=== PATIENT | male | born 1945 | race Caucasian/White ===

== ENCOUNTER 2020-07-02 09:09 | Day surgery (SDC) | payer OTHER, BC ==
[2020-06-26 11:37] VITALS: BMI 26.9
[2020-07-02] MEDS: PHENYLEPHRINE 2.5% OPHTH SOLN 15 ML BOTTLE ONE ×3 (10:45→10:55)
[2020-07-02] MEDS: CYCLOPENTOLATE 2% OPHTH SOLN 2 ML BOTTLE ONE ×3 (10:45→10:55)
[2020-07-02] MEDS: CIPROFLOXACIN 0.3% EYE DROPS 5 ML BOTTLE ONE ×3 (10:45→10:55)
[2020-07-02] MEDS: TROPICAMIDE 1% OPHTH SOLN 15 ML BOTTLE ONE ×3 (10:45→10:55)
[2020-07-02] MEDS ORDERED: MIDAZOLAM HCL 2 MG/2 ML SINGLE DOSE VIAL ONE (10:47)
[2020-07-02] MEDS ORDERED: LIDOCAINE 1% P/F 10 MG/ML VIAL ONE (11:05)
[2020-07-02] MEDS ORDERED: CARBACHOL 0.01% INTRA-OCULAR 1.5 ML VIAL ONE (11:05)
[2020-07-02] MEDS ORDERED: TETRACAINE 0.5% OPHTH SOLN 2 ML BOTTLE ONE (11:05)
[2020-07-02] MEDS ORDERED: NEO/POLYMYX B SULF/DEXAMETH OPHTHALMIC 5ML BOTTLE ONE (11:05)
[2020-07-02 12:55] VITALS: BP 123/62; PULSE 64; TEMP 97.9
== END 2020-07-02 12:35 | disposition home or self-care (01) ==
LOC: FASU 09:09
PROVIDERS: ATTEND Ophthalmology
PROC: 08RK3JZ Replacement of Left Lens with Synthetic Substitute, Percutaneous Approach (ICD-10-PCS; principal; 2020-07-02 11:26)
DX: H26.8 Other specified cataract (principal)

== ENCOUNTER 2020-07-20 15:38 | Inpatient (IN) | payer OTHER, BC ==
[2020-07-20] MEDS ORDERED: morphine CARPU-JECT 4 MG/1 ML DISP.SYRIN IVPUSH ONE (16:06)
[2020-07-20] MEDS ORDERED: morphine SULFATE 4 MG/ML VIAL ONE (16:14)
[2020-07-20 16:44] LABS: BASO % 0.8 % (0-2.0); EOS % 1.9 % (0-4.5); HEMOGLOBIN 14.3 GM/dl (11.7-16.9); LYMPH % 11.4 % (8-40); MCHC 35.7 g/dl (32.0-35.9); MEAN CELL VOLUME 100.9 fl (80-96); MEAN PLT VOLUME 9.2 fl (7.5-11.1); MONO % 6.1 % (3.8-10.2); NEUT % 79.8 % (42.8-82.8); PLATELET COUNT 227 K/MM3 (134-434); RBC 3.97 M/mm3 (4.00-5.60); RDW 12.7 % (11.9-15.9); WHITE BLOOD COUNT 7.6 K/mm3 (4.0-10.8)
[2020-07-20] MEDS ORDERED: SODIUM CHLORIDE 0.9% 500 ML INFUS.BAG IV ONE (16:50)
[2020-07-20] MEDS ORDERED: HYDROmorphone HCL CARPU-JECT 1 MG/1 ML DISP.SYRIN IVPUSH ONE ×4 (16:52→21:07)
[2020-07-20 16:56] LABS: ACTIVATED PTT 28.6 SECONDS (25.2-36.5)
[2020-07-20] MEDS ORDERED: HYDROmorphone HCL/PF 1 MG/ML VIAL ONE ×4 (16:56→21:08)
[2020-07-20 16:57] LABS: ALBUMIN 4.2 g/dl (3.4-5.0); BILIRUBIN,TOTAL 0.8 mg/dl (0.2-1); CREATININE 1.6 mg/dl (0.55-1.3); TOT PROT 6.6 g/dl (6.4-8.2)
[2020-07-20 17:01] LABS: INR 1.09 (0.82-1.09); PROTHROMBIN TIME (PATIENT) 12.1 SEC (10.2-13.0)
[2020-07-20 17:59] LABS: LIPASE 154 U/L (73-393)
[2020-07-20] MEDS ORDERED: SODIUM CHLORIDE 1,000 ML IV SCH (18:30)
[2020-07-20] MEDS ORDERED: PIPERACILLIN/TAZOB 4.5 GM 4.5 GM in DEXTROSE 5%-WATER 100 ML IVPB ONE (18:37)
[2020-07-20] MEDS ORDERED: PANTOPRAZOLE SODIUM 40 MG VIAL IVPUSH ONE (18:37)
[2020-07-20] MEDS ORDERED: PIPERACILLIN/TAZOBACTAM 4.5 GM VIAL IVPB ONE (18:46)
[2020-07-20] MEDS ORDERED: PANTOPRAZOLE SODIUM 40 MG VIAL ONE (18:47)
[2020-07-20] MEDS: PANTOPRAZOLE SODIUM 80 MG in SODIUM CHLORIDE 100 ML IVPB SCH (19:40)
[2020-07-20] MEDS ORDERED: MUPIROCIN 2% TOPICAL OINTMENT FOR DECOLONIZATION NS SCH (22:00)
[2020-07-20] MEDS ORDERED: CHLORHEXIDINE GLUCONATE 4% CLEANSER FOR DECOLONIZATION TP SCH (22:00)
[2020-07-21 03:21] VITALS: BMI 27.6
[2020-07-21] MEDS ORDERED: morphine SULFATE 4 MG/ML VIAL IVPUSH PRN (03:27)
[2020-07-21] MEDS ORDERED: ACETAMINOPHEN 1000 MG/100 ML VIAL (NON FORMULARY) IVPB PRN (03:27)
[2020-07-21] MEDS: PANTOPRAZOLE SODIUM 80 MG in SODIUM CHLORIDE 100 ML IVPB SCH ×2 (05:07→15:42)
[2020-07-21 06:51] LABS: BASO % 0.1 % (0-2.0); HEMATOCRIT 38.8 % (35.4-49); HEMOGLOBIN 13.3 GM/dL (11.7-16.9); LYMPH % 3.6 % (8-40); MCHC 34.3 g/dl (32.0-35.9); MEAN CELL VOLUME 102.1 fl (80-96); MEAN PLT VOLUME 9.1 fl (7.5-11.1); MONO % 4.8 % (3.8-10.2); NEUT % 91.5 % (42.8-82.8); PLATELET COUNT 187 K/MM3 (134-434); RDW 13.7 % (11.9-15.9); WHITE BLOOD COUNT 11.3 K/mm3 (4.0-10.0)
[2020-07-21 06:58] LABS: INR 1.09 (0.83-1.09); PROTHROMBIN TIME (PATIENT) 13.2 SEC (9.7-13.0)
[2020-07-21 07:00] LABS: ACTIVATED PTT 29.4 SECONDS (25.2-36.5)
[2020-07-21 07:10] LABS: ALBUMIN 3.3 g/dl (3.4-5.0); BLOOD UREA NITROGEN 33.5 mg/dL (7-18)
[2020-07-21 07:13] LABS: CREATININE 1.7 mg/dL (0.55-1.3); PHOSPHOROUS 4.2 mg/dL (2.5-4.9)
[2020-07-21 07:15] LABS: BILIRUBIN,TOTAL 0.7 mg/dL (0.2-1)
[2020-07-21] MEDS ORDERED: FLUCONAZOLE 400 MG/NS 200 ML IVPB ONE (07:30)
[2020-07-21 08:48] LABS: ANISOCYTOSIS 1+; MACROCYTOSIS 1+; PLATELET ESTIMATE NORMAL
[2020-07-21] MEDS ORDERED: DEXTROSE 5%-WATER 100 ML IVPB ONE (09:42)
[2020-07-21] MEDS ORDERED: PIPERACILLIN/TAZOBACTAM 4.5 GM VIAL IVPB ONE (09:42)
[2020-07-21] MEDS ORDERED: PIPERACILLIN/TAZOB 4.5 GM 4.5 GM in DEXTROSE 5%-WATER 100 ML IVPB ONE (10:00)
[2020-07-21] MEDS: MUPIROCIN 2% TOPICAL OINTMENT FOR DECOLONIZATION NS SCH ×2 (10:37→22:29)
[2020-07-21] MEDS: AMINO ACIDS 4.25%/D5W 2,000 ML IV SCH (13:15)
[2020-07-21] MEDS: SODIUM CHLORIDE 1,000 ML IV SCH (13:16)
[2020-07-21] MEDS: dilTIAZem HCL 50 MG/10 ML - 10 ML VIAL IVPUSH SCH ×2 (16:01→20:43)
[2020-07-21] MEDS ORDERED: MORPHINE SULFATE 2 MG/ML VIAL ONE (16:41)
[2020-07-21] MEDS ORDERED: PIPERACILLIN/TAZOBACTAM 3.375 GM VIAL IVPB ONE (17:17)
[2020-07-21] MEDS ORDERED: DEXTROSE 5%-WATER - 50 ML IVPB ONE (17:17)
[2020-07-21] MEDS: PIPERACILLIN/TAZOB 3.375 GM 3.375 GM in DEXTROSE 5%-WATER - 50 ML IVPB SCH (17:37)
[2020-07-21] MEDS ORDERED: MELATONIN 5 MG TABLETS PO ONE (22:14)
[2020-07-21] MEDS: CHLORHEXIDINE GLUCONATE 4% CLEANSER FOR DECOLONIZATION TP SCH (22:29)
[2020-07-21] MEDS ORDERED: ACETAMINOPHEN 1000 MG/100 ML VIAL (NON FORMULARY) IVPB ONE (22:30)
[2020-07-22] MEDS: dilTIAZem HCL 50 MG/10 ML - 10 ML VIAL IVPUSH SCH ×4 (05:26→20:34)
[2020-07-22] MEDS ORDERED: PIPERACILLIN/TAZOBACTAM 3.375 GM VIAL IVPB ONE ×3 (05:46→17:38)
[2020-07-22] MEDS ORDERED: DEXTROSE 5%-WATER - 50 ML IVPB ONE ×3 (05:46→17:38)
[2020-07-22] MEDS: PIPERACILLIN/TAZOB 3.375 GM 3.375 GM in DEXTROSE 5%-WATER - 50 ML IVPB SCH ×3 (05:47→17:43)
[2020-07-22] MEDS: PANTOPRAZOLE SODIUM 80 MG in SODIUM CHLORIDE 100 ML IVPB SCH ×3 (07:00→21:54)
[2020-07-22 09:57] LABS: HEMATOCRIT 35.6 % (35.4-49); HEMOGLOBIN 12.5 GM/dL (11.7-16.9); MCH 35.2 pg (25.7-33.7); MEAN CELL VOLUME 100.7 fl (80-96); MEAN PLT VOLUME 9.1 fl (7.5-11.1); PLATELET COUNT 189 K/MM3 (134-434); RBC 3.54 M/mm3 (4.00-5.60); RDW 13.6 % (11.9-15.9)
[2020-07-22] MEDS ORDERED: FLUCONAZOLE 100 MG/NS 50 ML IVPB SCH (10:00)
[2020-07-22] MEDS ORDERED: NICOTINE 21 MG/24 HOURS TOPICAL PATCH TD SCH (10:00)
[2020-07-22] MEDS ORDERED: PT OWN MED DRAWER 7, Y5N ONE ×2 (10:07→14:55)
[2020-07-22 10:27] LABS: CALCIUM 7.7 mg/dL (8.5-10.1)
[2020-07-22 10:28] LABS: ALBUMIN 2.9 g/dl (3.4-5.0); BLOOD UREA NITROGEN 23.9 mg/dL (7-18); MAGNESIUM 1.9 mg/dL (1.8-2.4)
[2020-07-22 10:31] LABS: CREATININE 0.9 mg/dL (0.55-1.3); PHOSPHOROUS 1.4 mg/dL (2.5-4.9)
[2020-07-22 10:32] LABS: BILIRUBIN,TOTAL 0.7 mg/dL (0.2-1); TOT PROT 5.7 g/dl (6.4-8.2)
[2020-07-22] MEDS ORDERED: TETRACAINE/BENZOCAINE/BUTAMBEN 20 GM SPR TP SCH (11:30)
[2020-07-22] MEDS: MUPIROCIN 2% TOPICAL OINTMENT FOR DECOLONIZATION NS SCH ×3 (12:33→21:55)
[2020-07-22] MEDS: SODIUM CHLORIDE 1,000 ML IV SCH (12:34)
[2020-07-22] MEDS: PHENOL 177 ML SPRAY BOTTLE MM PRN (12:37)
[2020-07-22] MEDS ORDERED: SODIUM PHOSPHATE - 15 MM in SODIUM CHLORIDE 250 ML IVPB ONE (14:45)
[2020-07-22] MEDS: AMINO ACIDS 4.25%/D5W 2,000 ML IV SCH (15:43)
[2020-07-22] MEDS: CHLORHEXIDINE GLUCONATE 4% CLEANSER FOR DECOLONIZATION TP SCH ×2 (21:53→21:55)
[2020-07-22] MEDS: HEPARIN NA (PORCINE) 5,000 UNITS/ML 1ML VIAL SQ SCH ×2 (22:00→22:24)
[2020-07-22] MEDS ORDERED: MORPHINE SULFATE 2 MG/ML VIAL IVPUSH PRN (23:03)
[2020-07-23] MEDS ORDERED: PIPERACILLIN/TAZOBACTAM 3.375 GM VIAL IVPB ONE ×3 (01:15→18:14)
[2020-07-23] MEDS ORDERED: DEXTROSE 5%-WATER - 50 ML IVPB ONE ×3 (01:15→18:15)
[2020-07-23] MEDS: PIPERACILLIN/TAZOB 3.375 GM 3.375 GM in DEXTROSE 5%-WATER - 50 ML IVPB SCH ×3 (01:19→18:15)
[2020-07-23] MEDS: PANTOPRAZOLE SODIUM 80 MG in SODIUM CHLORIDE 100 ML IVPB SCH ×3 (02:00→16:10)
[2020-07-23] MEDS: dilTIAZem HCL 50 MG/10 ML - 10 ML VIAL IVPUSH SCH ×4 (02:59→20:16)
[2020-07-23] MEDS: AMINO ACIDS 4.25%/D5W 2,000 ML IV SCH ×2 (05:51→11:36)
[2020-07-23] MEDS: HEPARIN NA (PORCINE) 5,000 UNITS/ML 1ML VIAL SQ SCH ×3 (05:56→22:22)
[2020-07-23 07:56] LABS: BASO % 0.2 % (0-2.0); EOS % 0.1 % (0-4.5); HEMATOCRIT 33.4 % (35.4-49); HEMOGLOBIN 11.7 GM/dL (11.7-16.9); LYMPH % 5.3 % (8-40); MEAN CELL VOLUME 100.1 fl (80-96); MONO % 6.1 % (3.8-10.2); NEUT % 88.3 % (42.8-82.8); PLATELET COUNT 175 K/MM3 (134-434); RBC 3.34 M/mm3 (4.00-5.60); RDW 13.3 % (11.9-15.9); WHITE BLOOD COUNT 12.5 K/mm3 (4.0-10.0)
[2020-07-23 08:25] LABS: CALCIUM 8.1 mg/dL (8.5-10.1)
[2020-07-23 08:26] LABS: ALBUMIN 2.8 g/dl (3.4-5.0); BLOOD UREA NITROGEN 18.8 mg/dL (7-18); MAGNESIUM 1.9 mg/dL (1.8-2.4)
[2020-07-23 08:29] LABS: PHOSPHOROUS 2.2 mg/dL (2.5-4.9)
[2020-07-23 08:30] LABS: BILIRUBIN,TOTAL 0.7 mg/dL (0.2-1); TOT PROT 5.9 g/dl (6.4-8.2)
[2020-07-23] MEDS: NICOTINE 21 MG/24 HOURS TOPICAL PATCH TD SCH (09:45)
[2020-07-23] MEDS: FLUCONAZOLE 100 MG/NS 50 ML IVPB SCH (09:46)
[2020-07-23] MEDS ORDERED: POTASSIUM PHOSPHATE 30 MM in DEXTROSE 5%-WATER - 500 ML IVPB ONE (11:30)
[2020-07-23] MEDS ORDERED: CHLORHEXIDINE GLUCONATE 4% CLEANSER FOR DECOLONIZATION TP SCH (22:00)
[2020-07-24] MEDS ORDERED: PIPERACILLIN/TAZOBACTAM 3.375 GM VIAL IVPB ONE ×3 (01:06→17:10)
[2020-07-24] MEDS ORDERED: DEXTROSE 5%-WATER - 50 ML IVPB ONE ×3 (01:07→17:10)
[2020-07-24] MEDS: dilTIAZem HCL 50 MG/10 ML - 10 ML VIAL IVPUSH SCH ×3 (01:28→14:16)
[2020-07-24] MEDS: PIPERACILLIN/TAZOB 3.375 GM 3.375 GM in DEXTROSE 5%-WATER - 50 ML IVPB SCH ×3 (01:53→17:13)
[2020-07-24] MEDS: HEPARIN NA (PORCINE) 5,000 UNITS/ML 1ML VIAL SQ SCH ×4 (05:29→22:23)
[2020-07-24 07:09] LABS: HEMATOCRIT 34.7 % (35.4-49); HEMOGLOBIN 11.9 GM/dL (11.7-16.9); MCHC 34.2 g/dl (32.0-35.9); MEAN CELL VOLUME 99.3 fl (80-96); MEAN PLT VOLUME 9.2 fl (7.5-11.1); PLATELET COUNT 194 K/MM3 (134-434); RBC 3.49 M/mm3 (4.00-5.60); RDW 13.4 % (11.9-15.9); WHITE BLOOD COUNT 9.2 K/mm3 (4.0-10.0)
[2020-07-24 07:34] LABS: ALBUMIN 2.6 g/dl (3.4-5.0)
[2020-07-24 07:35] LABS: BLOOD UREA NITROGEN 21.9 mg/dL (7-18); CALCIUM 8.2 mg/dL (8.5-10.1)
[2020-07-24 07:36] LABS: MAGNESIUM 1.9 mg/dL (1.8-2.4)
[2020-07-24 07:38] LABS: PHOSPHOROUS 2.4 mg/dL (2.5-4.9)
[2020-07-24 07:39] LABS: BILIRUBIN,TOTAL 1.2 mg/dL (0.2-1); CREATININE 0.9 mg/dL (0.55-1.3); TOT PROT 5.9 g/dl (6.4-8.2)
[2020-07-24] MEDS: PANTOPRAZOLE SODIUM 80 MG in SODIUM CHLORIDE 100 ML IVPB SCH ×2 (09:33→17:39)
[2020-07-24] MEDS: FLUCONAZOLE 100 MG/NS 50 ML IVPB SCH (09:34)
[2020-07-24] MEDS: NICOTINE 21 MG/24 HOURS TOPICAL PATCH TD SCH (09:42)
[2020-07-24] MEDS ORDERED: POTASSIUM PHOSPHATE 30 MM in SODIUM CHLORIDE 500 ML IVPB ONE (11:15)
[2020-07-24] MEDS: AMINO ACIDS 4.25%/D5W 2,000 ML IV SCH (11:32)
[2020-07-24] MEDS ORDERED: PHENOL 177 ML SPRAY BOTTLE MM PRN (15:44)
[2020-07-24] MEDS: PHENOL 177 ML SPRAY BOTTLE MM PRN (17:54)
[2020-07-25] MEDS: dilTIAZem HCL 50 MG/10 ML - 10 ML VIAL IVPUSH SCH ×6 (01:18→22:17)
[2020-07-25] MEDS ORDERED: PIPERACILLIN/TAZOBACTAM 3.375 GM VIAL IVPB ONE ×3 (01:30→17:03)
[2020-07-25] MEDS ORDERED: DEXTROSE 5%-WATER - 50 ML IVPB ONE ×3 (01:30→17:04)
[2020-07-25] MEDS ORDERED: dilTIAZem HCL 25 MG/5 ML - 5 ML VIAL IVPUSH SCH (01:36)
[2020-07-25] MEDS: PIPERACILLIN/TAZOB 3.375 GM 3.375 GM in DEXTROSE 5%-WATER - 50 ML IVPB SCH ×3 (01:58→17:15)
[2020-07-25] MEDS: HEPARIN NA (PORCINE) 5,000 UNITS/ML 1ML VIAL SQ SCH ×3 (06:45→22:15)
[2020-07-25 06:51] LABS: HEMATOCRIT 34.8 % (35.4-49); HEMOGLOBIN 12.1 GM/dL (11.7-16.9); MCH 34.8 pg (25.7-33.7); MCHC 34.7 g/dl (32.0-35.9); MEAN CELL VOLUME 100.2 fl (80-96); MEAN PLT VOLUME 8.8 fl (7.5-11.1); PLATELET COUNT 215 K/MM3 (134-434); RBC 3.48 M/mm3 (4.00-5.60); RDW 13.5 % (11.9-15.9); WHITE BLOOD COUNT 8.5 K/mm3 (4.0-10.0)
[2020-07-25 07:23] LABS: BLOOD UREA NITROGEN 21.6 mg/dL (7-18); CALCIUM 8.2 mg/dL (8.5-10.1)
[2020-07-25 07:24] LABS: MAGNESIUM 1.9 mg/dL (1.8-2.4)
[2020-07-25 07:26] LABS: CREATININE 0.9 mg/dL (0.55-1.3)
[2020-07-25 07:27] LABS: PHOSPHOROUS 2.7 mg/dL (2.5-4.9)
[2020-07-25] MEDS ORDERED: PT OWN MED DRAWER 7, Y5N ONE (08:22)
[2020-07-25] MEDS: PANTOPRAZOLE SODIUM 80 MG in SODIUM CHLORIDE 100 ML IVPB SCH ×3 (09:10→22:16)
[2020-07-25] MEDS: FLUCONAZOLE 100 MG/NS 50 ML IVPB SCH (09:11)
[2020-07-25] MEDS: NICOTINE 21 MG/24 HOURS TOPICAL PATCH TD SCH (09:16)
[2020-07-25] MEDS: KCL 10 MEQ IVPB 10 MEQ/100 ML INFUS.BAG IVPB SCH ×2 (09:20→11:17)
[2020-07-25] MEDS: AMINO ACIDS 4.25%/D5W 2,000 ML IV SCH (11:18)
[2020-07-25] MEDS ORDERED: POTASSIUM PHOSPHATE 30 MM in SODIUM CHLORIDE 500 ML IVPB ONE (12:00)
[2020-07-25] MEDS ORDERED: ACETAMINOPHEN 1000 MG/100 ML VIAL (NON FORMULARY) IVPB PRN (13:43)
[2020-07-26] MEDS ORDERED: PIPERACILLIN/TAZOBACTAM 3.375 GM VIAL IVPB ONE ×3 (00:05→16:57)
[2020-07-26] MEDS ORDERED: DEXTROSE 5%-WATER - 50 ML IVPB ONE ×3 (00:05→16:57)
[2020-07-26] MEDS: PIPERACILLIN/TAZOB 3.375 GM 3.375 GM in DEXTROSE 5%-WATER - 50 ML IVPB SCH ×3 (02:02→17:48)
[2020-07-26] MEDS: HEPARIN NA (PORCINE) 5,000 UNITS/ML 1ML VIAL SQ SCH ×3 (06:37→21:58)
[2020-07-26] MEDS: PANTOPRAZOLE SODIUM 80 MG in SODIUM CHLORIDE 100 ML IVPB SCH ×3 (07:20→18:14)
[2020-07-26 07:28] LABS: HEMATOCRIT 34.9 % (35.4-49); HEMOGLOBIN 12.1 GM/dL (11.7-16.9); MCHC 34.7 g/dl (32.0-35.9); MEAN CELL VOLUME 100.9 fl (80-96); MEAN PLT VOLUME 9.2 fl (7.5-11.1); PLATELET COUNT 238 K/MM3 (134-434); RBC 3.46 M/mm3 (4.00-5.60); RDW 13.3 % (11.9-15.9); WHITE BLOOD COUNT 8.8 K/mm3 (4.0-10.0)
[2020-07-26 07:48] LABS: BLOOD UREA NITROGEN 21.5 mg/dL (7-18); CALCIUM 8.5 mg/dL (8.5-10.1)
[2020-07-26 07:49] LABS: MAGNESIUM 2.1 mg/dL (1.8-2.4)
[2020-07-26 07:52] LABS: CREATININE 0.9 mg/dL (0.55-1.3); PHOSPHOROUS 3.4 mg/dL (2.5-4.9)
[2020-07-26] MEDS: dilTIAZem HCL 50 MG/10 ML - 10 ML VIAL IVPUSH SCH ×3 (08:15→22:17)
[2020-07-26] MEDS: NICOTINE 21 MG/24 HOURS TOPICAL PATCH TD SCH (09:24)
[2020-07-26] MEDS ORDERED: PT OWN MED DRAWER 7, Y5N ONE (09:28)
[2020-07-26] MEDS: FLUCONAZOLE 100 MG/NS 50 ML IVPB SCH (09:34)
[2020-07-26] MEDS: AMINO ACIDS 4.25%/D5W 2,000 ML IV SCH (11:00)
[2020-07-26] MEDS ORDERED: diphenhydrAMINE HCL 25 MG CAPSULE (FP) PO ONE (21:03)
[2020-07-27] MEDS: PIPERACILLIN/TAZOB 3.375 GM 3.375 GM in DEXTROSE 5%-WATER - 50 ML IVPB SCH ×3 (02:00→18:22)
[2020-07-27] MEDS ORDERED: PIPERACILLIN/TAZOBACTAM 3.375 GM VIAL IVPB ONE ×3 (04:21→18:11)
[2020-07-27] MEDS ORDERED: DEXTROSE 5%-WATER - 50 ML IVPB ONE ×3 (04:21→18:11)
[2020-07-27] MEDS: dilTIAZem HCL 50 MG/10 ML - 10 ML VIAL IVPUSH SCH ×4 (04:29→19:45)
[2020-07-27] MEDS: PANTOPRAZOLE SODIUM 80 MG in SODIUM CHLORIDE 100 ML IVPB SCH ×2 (06:34→20:53)
[2020-07-27] MEDS: HEPARIN NA (PORCINE) 5,000 UNITS/ML 1ML VIAL SQ SCH ×3 (06:35→21:48)
[2020-07-27 07:11] LABS: BASO % 0.3 % (0-2.0); EOS % 2.7 % (0-4.5); HEMATOCRIT 32.6 % (35.4-49); HEMOGLOBIN 11.1 GM/dL (11.7-16.9); LYMPH % 7.2 % (8-40); MCH 34.3 pg (25.7-33.7); MCHC 34.2 g/dl (32.0-35.9); MEAN CELL VOLUME 100.3 fl (80-96); MEAN PLT VOLUME 9.1 fl (7.5-11.1); MONO % 11.7 % (3.8-10.2); NEUT % 78.1 % (42.8-82.8); PLATELET COUNT 268 K/MM3 (134-434); RBC 3.25 M/mm3 (4.00-5.60); RDW 13.5 % (11.9-15.9); WHITE BLOOD COUNT 8.7 K/mm3 (4.0-10.0)
[2020-07-27 07:47] LABS: CALCIUM 8.2 mg/dL (8.5-10.1)
[2020-07-27 07:48] LABS: ALBUMIN 2.6 g/dl (3.4-5.0); BLOOD UREA NITROGEN 23.2 mg/dL (7-18)
[2020-07-27 07:51] LABS: CREATININE 0.9 mg/dL (0.55-1.3)
[2020-07-27 07:53] LABS: BILIRUBIN,TOTAL 0.8 mg/dL (0.2-1)
[2020-07-27 08:58] LABS: ANISOCYTOSIS 1+; MACROCYTOSIS 0; PLATELET ESTIMATE NORMAL
[2020-07-27] MEDS: FLUCONAZOLE 100 MG/NS 50 ML IVPB SCH (09:35)
[2020-07-27] MEDS: NICOTINE 21 MG/24 HOURS TOPICAL PATCH TD SCH (09:35)
[2020-07-27] MEDS: AMINO ACIDS 4.25%/D5W 2,000 ML IV SCH (11:17)
[2020-07-28] MEDS ORDERED: PIPERACILLIN/TAZOBACTAM 3.375 GM VIAL IVPB ONE ×2 (00:47→09:47)
[2020-07-28] MEDS ORDERED: DEXTROSE 5%-WATER - 50 ML IVPB ONE ×2 (00:47→09:47)
[2020-07-28] MEDS: dilTIAZem HCL 50 MG/10 ML - 10 ML VIAL IVPUSH SCH ×3 (02:06→14:36)
[2020-07-28] MEDS: PIPERACILLIN/TAZOB 3.375 GM 3.375 GM in DEXTROSE 5%-WATER - 50 ML IVPB SCH ×2 (03:07→10:11)
[2020-07-28] MEDS: HEPARIN NA (PORCINE) 5,000 UNITS/ML 1ML VIAL SQ SCH ×3 (06:31→21:16)
[2020-07-28] MEDS: PANTOPRAZOLE SODIUM 80 MG in SODIUM CHLORIDE 100 ML IVPB SCH ×2 (06:31→17:12)
[2020-07-28 06:56] LABS: BASO % 0.3 % (0-2.0); EOS % 3.2 % (0-4.5); HEMATOCRIT 33.3 % (35.4-49); HEMOGLOBIN 11.5 GM/dL (11.7-16.9); LYMPH % 7.9 % (8-40); MCH 34.2 pg (25.7-33.7); MCHC 34.4 g/dl (32.0-35.9); MEAN CELL VOLUME 99.4 fl (80-96); MEAN PLT VOLUME 8.8 fl (7.5-11.1); MONO % 11.5 % (3.8-10.2); NEUT % 77.1 % (42.8-82.8); PLATELET COUNT 321 K/MM3 (134-434); RBC 3.36 M/mm3 (4.00-5.60); RDW 13.4 % (11.9-15.9); WHITE BLOOD COUNT 8.3 K/mm3 (4.0-10.0)
[2020-07-28 07:53] LABS: ALBUMIN 2.6 g/dl (3.4-5.0); CALCIUM 8.3 mg/dL (8.5-10.1); CREATININE 0.9 mg/dL (0.55-1.3)
[2020-07-28 07:55] LABS: BILIRUBIN,TOTAL 0.8 mg/dL (0.2-1)
[2020-07-28 08:02] LABS: TOT PROT 6.2 g/dl (6.4-8.2)
[2020-07-28] MEDS: NICOTINE 21 MG/24 HOURS TOPICAL PATCH TD SCH (10:11)
[2020-07-28] MEDS: FLUCONAZOLE 100 MG/NS 50 ML IVPB SCH (11:48)
[2020-07-28] MEDS: AMINO ACIDS 4.25%/D5W 2,000 ML IV SCH (14:37)
[2020-07-28] MEDS ORDERED: metroNIDAZOLE 250 MG TABLET PO SCH (15:30)
[2020-07-28] MEDS ORDERED: POTASSIUM CHLORIDE ORAL LIQUID 20 MEQ/15 ML PO ONE (16:20)
[2020-07-28] MEDS: metroNIDAZOLE 500 MG TABLET PO SCH (21:16)
[2020-07-28] MEDS: CEFUROXIME AXETIL 500 MG TABLET PO SCH (21:16)
[2020-07-28] MEDS ORDERED: diphenhydrAMINE HCL 12.5 MG/5 ML UNIT-DOSE CUPS PO ONE (21:38)
[2020-07-29] MEDS: PANTOPRAZOLE SODIUM 80 MG in SODIUM CHLORIDE 100 ML IVPB SCH (02:30)
[2020-07-29] MEDS: HEPARIN NA (PORCINE) 5,000 UNITS/ML 1ML VIAL SQ SCH (06:16)
[2020-07-29] MEDS: metroNIDAZOLE 500 MG TABLET PO SCH (06:18)
[2020-07-29 06:57] LABS: HEMATOCRIT 31.7 % (35.4-49); MCH 34.5 pg (25.7-33.7); MCHC 34.6 g/dl (32.0-35.9); MEAN CELL VOLUME 99.6 fl (80-96); MEAN PLT VOLUME 9.3 fl (7.5-11.1); PLATELET COUNT 316 K/MM3 (134-434); RBC 3.19 M/mm3 (4.00-5.60); RDW 13.1 % (11.9-15.9); WHITE BLOOD COUNT 8.7 K/mm3 (4.0-10.0)
[2020-07-29 07:33] LABS: BLOOD UREA NITROGEN 18.2 mg/dL (7-18)
[2020-07-29 07:34] LABS: CALCIUM 8.2 mg/dL (8.5-10.1)
[2020-07-29 07:37] LABS: CREATININE 0.9 mg/dL (0.55-1.3)
[2020-07-29 08:45] VITALS: BP 132/71; PULSE 74; TEMP 97.8
[2020-07-29] MEDS: CEFUROXIME AXETIL 500 MG TABLET PO SCH (09:21)
[2020-07-29] MEDS: NICOTINE 21 MG/24 HOURS TOPICAL PATCH TD SCH (09:22)
[2020-07-29] MEDS ORDERED: CEFUROXIME AXETIL 500 MG TABLET PO SCH (10:56)
[2020-07-29] MEDS ORDERED: PANTOPRAZOLE 40 MG TABLET PO SCH (14:00)
== END 2020-07-29 13:40 | disposition home or self-care (01) | DRG 380 ==
LOC: FER 15:38 → JICU 07-21 01:42 → J4W 07-22 21:40
PROVIDERS: ADMIT Internal Medicine Pulmonary Disease; ATTEND Internal Medicine
PROC: 0D9670Z Drainage of Stomach with Drainage Device, Via Natural or Artificial Opening (ICD-10-PCS; principal; 2020-07-20)
DX: K25.1 Acute gastric ulcer with perforation (principal); K65.9 Peritonitis, unspecified; N17.9 Acute kidney failure, unspecified; E87.1 Hypo-osmolality and hyponatremia; T37.8X5A Adverse effect of other specified systemic anti-infectives and antiparasitics, initial encounter; I10 Essential (primary) hypertension; M48.061 Spinal stenosis, lumbar region without neurogenic claudication; K66.9 Disorder of peritoneum, unspecified; I45.10 Unspecified right bundle-branch block; E66.9 Obesity, unspecified; Z68.27 Body mass index [BMI] 27.0-27.9, adult; M85.80 Other specified disorders of bone density and structure, unspecified site; F10.20 Alcohol dependence, uncomplicated; F17.210 Nicotine dependence, cigarettes, uncomplicated; I48.91 Unspecified atrial fibrillation; D72.829 Elevated white blood cell count, unspecified; R94.5 Abnormal results of liver function studies; E05.90 Thyrotoxicosis, unspecified without thyrotoxic crisis or storm
CPT/HCPCS: 36415; 71045-TC-FY; 74176-TC; 80048; 80053; 81003; 82550; 82553; 83605; 83690; 83735; 84100; 84484; 85025; 85027; 85610; 85730; 86850; 86900; 86901; 87040; 93005; 97116-GP; 97161-GP; 99291; 99292; C9803; J0131; J1644; U0003; U0005